=== PATIENT | female | born 2000 | race Caucasian/White ===

== ENCOUNTER 2018-03-15 20:00 | Emergency (ER) | payer OTHER ==
[2018-03-15 23:21] LABS: URINE BLOOD (Dip) POC Negative (NEGATIVE); URINE GLUCOSE (Dip) POC Negative (NEGATIVE); URINE KETONES (Dip) POC 2+ (NEGATIVE); URINE LEUKOCYTE EST (Dip) POC Negative (NEGATIVE); URINE NITRITE (Dip) POC Negative (NEGATIVE); URINE TOTAL PROTEIN POC Negative (NEGATIVE)
[2018-03-15] MEDS: ONDANSETRON (ODT) 4 MG TAB ODT (23:30)
[2018-03-15] MEDS: KETOROLAC 30 MG INJ IM (23:44)
== END 2018-03-16 00:53 | disposition home or self-care (01) ==
LOC: FTE 03-16 00:53
DX: J02.9 Acute pharyngitis, unspecified (principal); M54.9 Dorsalgia, unspecified; R51 Headache; R11.2 Nausea with vomiting, unspecified
CPT/HCPCS: 81003; 81025; 96372; 99284-25